=== PATIENT | female | born 1980 | race Caucasian/White ===

== ENCOUNTER 2016-07-02 07:33 | Emergency (ER) | payer SELFPAY ==
--- NOTE | 2016-07-02 09:24 | ER Document Report ---
ED General - General Chief Complaint: Facial Swelling Stated Complaint: FACIAL PAIN Mode of Arrival: Ambulatory Information source: Patient TRAVEL OUTSIDE OF THE [place] IN LAST 30 DAYS: No - HPI Onset: Just prior to arrival Onset/Duration: Gradual Notes: A 5-year-old female presented to the emergency room today stating that she woke to the left side of her lower jaw swelling with discomfort. She does have some severe dentalgia in the area. - Related Data Allergies/Adverse Reactions: Bee Stings Allergy (Uncoded 07/02/16 07:41) Past Medical History - Social History Smoking Status: Current Every Day Smoker Cigarette use (# per day): No Chew tobacco use (# tins/day): No Frequency of alcohol use: Occasional Family History: Other Patient has suicidal ideation: No Patient has homicidal ideation: No - Past Medical History Cardiac Medical History: Denies: Hx Coronary Artery Disease, Hx Heart Attack, Hx Hypertension Pulmonary Medical History: Reports: Hx Bronchitis Denies: Hx Asthma, Hx COPD Neurological Medical History: Denies: Hx Cerebrovascular Accident, Hx Seizures Renal/ Medical History: Denies: Hx Peritoneal Dialysis Musculoskeltal Medical History: Denies Hx Arthritis Past Surgical History: Reports: Hx Thyroid Surgery, Hx Tubal Ligation - 6 months ago. Denies: Hx Pacemaker - Immunizations Hx Diphtheria, Pertussis, Tetanus Vaccination: Yes Hx Pneumococcal Vaccination: 02/08/00 Review of Systems - Review of Systems Constitutional: No symptoms reported EENT: No symptoms reported Cardiovascular: No symptoms reported Respiratory: No symptoms reported Gastrointestinal: No symptoms reported Genitourinary: No symptoms reported Female Genitourinary: No symptoms reported Musculoskeletal: No symptoms reported Skin: No symptoms reported Hematologic/Lymphatic: No symptoms reported Neurological/Psychological: No symptoms reported Physical Exam - Vital signs Vitals: Temp Pulse Resp BP Pulse Ox 97.6 F 66 16 122/85 98 07/02/16 07:41 07/02/16 07:41 07/02/16 07:41 07/02/16 07:41 07/02/16 07:41 Interpretation: Normal - General General appearance: Appears well, Alert - HEENT Head: Normocephalic, Atraumatic Eyes: Normal Pupils: PERRL Mouth/Lips: Dental fracture, Other - Dental abscess to tooth 18 and 19.. Severe dentalgia to tooth 17 through 21. - Respiratory Respiratory status: No respiratory distress Chest status: Nontender Breath sounds: Normal Chest palpation: Normal - Cardiovascular Rhythm: Regular Heart sounds: Normal auscultation Murmur: No - Abdominal Inspection: Normal Distension: No distension Bowel sounds: Normal Tenderness: Nontender Organomegaly: No organomegaly - Back Back: Normal, Nontender - Extremities General upper extremity: Normal inspection, Nontender, Normal color, Normal ROM , Normal temperature General lower extremity: Normal inspection, Nontender, Normal color, Normal ROM , Normal temperature, Normal weight bearing. No: Bernie's sign - Neurological Neuro grossly intact: Yes Cognition: Normal Orientation: AAOx4 Kevin Coma Scale Eye Opening: Spontaneous [place] Coma Scale Verbal: Oriented [place] Coma Scale Motor: Obeys Commands Kevin Coma Scale Total: 15 Speech: Normal Motor strength normal: LUE, RUE, LLE, RLE Sensory: Normal - Psychological Associated symptoms: Normal affect, Normal mood - Skin Skin Temperature: Warm Skin Moisture: Dry Skin Color: Normal Course - Vital Signs Vital signs: Temp Pulse Resp BP Pulse Ox 97.6 F 66 16 122/85 98 07/02/16 07:41 07/02/16 07:41 07/02/16 07:41 07/02/16 07:41 07/02/16 07:41 Discharge - Discharge Clinical Impression: Dental abscess Disposition: HOME, SELF-CARE Instructions: Oral Narcotic Medication ([facility]), Dental Infection or Abscess ([facility]) Additional Instructions: Toothache Your pain is due to dental decay. The tooth must be repaired in order for you to feel better. You will, therefore, be referred to a dentist. Severe swelling or drainage around a tooth usually means a deep dental abscess. This also requires evaluation and treatment by the dentist, but antibiotics may be prescribed while awaiting dental treatment. You should be rechecked immediately if you develop major swelling of the face, increasing pain, a lump in the jaw or gums, headache, or fever. Prescriptions: Tramadol HCl [Ultram 50 mg Tablet] 50 mg PO Q4HP PRN #60 tab PRN Reason: Clindamycin HCl [Cleocin HCl] 150 mg PO TID #30 capsule Naproxen Sodium [Naproxen Sodium ER] 500 mg PO Q12 PRN #20 tablet.sa PRN Reason:
[2016-07-02 09:35] VITALS: BP 116/91
== END 2016-07-02 09:38 | disposition home or self-care (01) ==
LOC: ER 07:33
DX: K04.7 Periapical abscess without sinus (principal); R22.0 Localized swelling, mass and lump, head; R51 Headache; R68.84 Jaw pain; F17.200 Nicotine dependence, unspecified, uncomplicated
CPT/HCPCS: 99283

== ENCOUNTER 2016-11-15 19:28 | Emergency (ER) | payer SELFPAY ==
[2016-11-15 19:36] VITALS: BP 127/79
== END 2016-11-15 22:00 | disposition left against medical advice (07) ==
LOC: ER 19:28
DX: Z53.21 Procedure and treatment not carried out due to patient leaving prior to being seen by health care provider (principal)

== ENCOUNTER 2017-09-20 16:47 | Emergency (ER) | payer SELFPAY ==
[2017-09-20 18:09] LABS: APPEARANCE,URINE SLIGHTLY-CLOUDY; BILIRUBIN,URINE NEGATIVE (NEGATIVE); COLOR,URINE YELLOW; GLUCOSE, URINE NEGATIVE (NEGATIVE); KETONES,URINE NEGATIVE (NEGATIVE); LEUKOCYTE ESTERASE,URINE MODERATE (NEGATIVE); NITRITE,URINE NEGATIVE (NEGATIVE); PROTEIN,URINE NEGATIVE (NEGATIVE); URINE SPECIFIC GRAVITY 1.011; UROBILINOGEN,URINE NEGATIVE mg/dL (<2.0)
[2017-09-20] MEDS ORDERED: ASPIRIN 81 MG TABLET, CHEWABLE PO ONE (19:10)
--- NOTE | 2017-09-20 19:10 | ER Document Report ---
ED Medical Screen (RME) - General Chief Complaint: Chest Pain Stated Complaint: ABDOMINAL/SHOULDER PAIN Time Seen by Provider: 09/20/17 19:06 TRAVEL OUTSIDE OF THE [place] IN LAST 30 DAYS: No - HPI Notes: 09/20/17 19:09 Left upper quadrant abdominal pain with slight nausea denies any fevers or chills ongoing for a week. Patient states total thyroidectomy also took all her parathyroid medications for 1 year. - Related Data Allergies/Adverse Reactions: Bee Stings Allergy (Uncoded 07/02/16 07:41) Past Medical History - Social History Chew tobacco use (# tins/day): No Frequency of alcohol use: None Drug Abuse: None - Past Medical History Cardiac Medical History: Denies: Hx Coronary Artery Disease, Hx Heart Attack, Hx Hypertension Pulmonary Medical History: Reports: Hx Bronchitis Denies: Hx Asthma, Hx COPD Neurological Medical History: Denies: Hx Cerebrovascular Accident, Hx Seizures Renal/ Medical History: Denies: Hx Peritoneal Dialysis Musculoskeltal Medical History: Denies Hx Arthritis Past Surgical History: Reports: Hx Thyroid Surgery, Hx Tubal Ligation. Denies: Hx Pacemaker - Immunizations Hx Diphtheria, Pertussis, Tetanus Vaccination: Yes Review of Systems - Review of Systems Cardiovascular: Other - Left upper quadrant abdominal pain Physical Exam - Vital signs Vitals: Temp Pulse Resp BP Pulse Ox 98.1 F 63 16 131/86 H 99 09/20/17 17:21 09/20/17 17:21 09/20/17 17:21 09/20/17 17:21 09/20/17 17:21 - Cardiovascular Rhythm: Regular Heart sounds: Normal auscultation Course - Vital Signs Vital signs: Temp Pulse Resp BP Pulse Ox 98.1 F 63 16 131/86 H 99 09/20/17 17:21 09/20/17 17:21 09/20/17 17:21 09/20/17 17:21 09/20/17 17:21 - Laboratory Laboratory results interpreted by me: 09/20/17 17:35 Ur Leukocyte Esterase MODERATE H
[2017-09-20 20:05] LABS: ABSOLUTE EOSINOPHILS # (AUTO) 0.2 10^3/uL (0.0-0.6); ABSOLUTE LYMPHOCYTES (AUTO) 2.3 10^3/uL (0.5-4.7); ABSOLUTE MONOCYTES (AUTO) 0.4 10^3/uL (0.1-1.4); ABSOLUTE NEUT (AUTO) 3.9 10^3/uL (1.7-8.2); BASOPHILS % (AUTO) 0.6 % (0-2); EOSINOPHILS % (AUTO) 3.3 % (0-6); HEMATOCRIT 37.6 % (36.0-47.0); HEMOGLOBIN 12.4 g/dL (12.0-15.5); LYMPHOCYTES % (AUTO) 33.4 % (13-45); MEAN CORPUSCULAR HEMOGLOBIN 28.2 pg (27.0-33.4); MEAN CORPUSCULAR HGB CONC 33.1 g/dL (32.0-36.0); MEAN CORPUSCULAR VOLUME 85 fl (80-97); MONOCYTES % (AUTO) 6.2 % (3-13); PLATELET COUNT 250 10^3/uL (150-450); RED BLOOD COUNT 4.42 10^6/uL (3.72-5.28); RED CELL DISTRIBUTION WIDTH 15.9 % (11.5-14.0); SEGMENTED NEUTROPHILS % (AUTO) 56.5 % (42-78); TOTAL CELLS COUNTED % (AUTO) 100 %; WHITE BLOOD COUNT 6.8 10^3/uL (4.0-10.5)
[2017-09-20] MEDS ORDERED: MORPHINE SULFATE 10 MG/ML INJ IV ONE (20:13)
[2017-09-20] MEDS ORDERED: ONDANSETRON HCL INJ/PF 4 MG/2 ML SDV IV ONE (20:13)
--- NOTE | 2017-09-20 20:22 | RADIOLOGY REPORT (SQ) ---
EXAM DESCRIPTION: ACUTE ABDOMEN SERIES COMPLETED DATE/TIME: 09/20/2017 7:59 pm REASON FOR STUDY: llq pain COMPARISON: None. NUMBER OF VIEWS: Three views. TECHNIQUE: Frontal chest, supine abdomen and upright/ abdomen radiographic images acquired. LIMITATIONS: None. FINDINGS: CHEST: Lungs clear of infiltrates. FREE AIR: None. No abnormal gas collections. BOWEL GAS PATTERN: Nonobstructive pattern. No dilated loops or air fluid levels. CALCIFICATIONS: No suspicious calcifications. HARDWARE: None in the abdomen. SOFT TISSUES: The liver is prominent. BONES: No acute fracture. No worrisome bone lesions. OTHER: No other significant finding. IMPRESSION: Possible hepatomegaly. Nonspecific abdomen otherwise. TECHNICAL DOCUMENTATION: JOB ID: [id number] [employer]- All Rights Reserved Reading location - IP/workstation name: [email or web address]
[2017-09-20 20:24] LABS: ALANINE AMINOTRANSFERASE 27 U/L (9-52); ALBUMIN 4.7 g/dL (3.5-5.0); ALKALINE PHOSPHATASE 46 U/L (38-126); ANION GAP 11 (5-19); ASPARTATE AMINO TRANSFERASE 20 U/L (14-36); BILIRUBIN,DIRECT 0.2 mg/dL (0.0-0.4); BILIRUBIN,TOTAL 0.3 mg/dL (0.2-1.3); BLOOD UREA NITROGEN 9 mg/dL (7-20); CALCIUM 9.5 mg/dL (8.4-10.2); CARBON DIOXIDE 26 mmol/L (22-30); CHLORIDE 105 mmol/L (98-107); CREATINE KINASE 57 U/L (30-135); GLUCOSE 74 mg/dL (75-110); POTASSIUM 3.8 mmol/L (3.6-5.0); SODIUM 142.4 mmol/L (137-145); TOTAL PROTEIN 7.9 g/dL (6.3-8.2)
[2017-09-20 20:36] LABS: CREATINE KINASE MB 0.23 ng/mL (<4.55)
[2017-09-20 20:39] LABS: TROPONIN I < 0.012 ng/mL
[2017-09-20 20:41] LABS: FREE T4 (FREE THYROXINE) 0.77 ng/dL (0.78-2.19)
[2017-09-20 20:55] LABS: THYROID STIMULATING HORMONE 5.01 uIU/mL (0.47-4.68)
[2017-09-20 21:13] LABS: LIPASE 93.8 U/L (23-300)
--- NOTE | 2017-09-20 21:25 | ER Document Report ---
ED General - General Chief Complaint: Abdominal Pain Stated Complaint: ABDOMINAL/SHOULDER PAIN Time Seen by Provider: 09/20/17 19:06 TRAVEL OUTSIDE OF THE [place] IN LAST 30 DAYS: No - HPI Notes: 36-year-old female presents with 1-1/2 weeks of left upper quadrant abdominal pain radiating into her chest and back. Pain is sharp and constant. Denies nausea, vomiting. She has had multiple episodes of diarrhea without any obvious blood. No fevers or chills. Denies shortness of breath, cough, hemoptysis. No recent travel. No similar pain in the past. No history of clots or hormone use. Denies urinary changes, vaginal bleeding or vaginal discharge. Denies rash or skin hyperesthesia. - Related Data Allergies/Adverse Reactions: Bee Stings Allergy (Uncoded 07/02/16 07:41) Past Medical History - Social History Smoking Status: Current Every Day Smoker Chew tobacco use (# tins/day): No Frequency of alcohol use: None Drug Abuse: None Family History: Other Patient has suicidal ideation: No Patient has homicidal ideation: No - Past Medical History Cardiac Medical History: Denies: Hx Coronary Artery Disease, Hx Heart Attack, Hx Hypertension Pulmonary Medical History: Reports: Hx Bronchitis Denies: Hx Asthma, Hx COPD Neurological Medical History: Denies: Hx Cerebrovascular Accident, Hx Seizures Renal/ Medical History: Denies: Hx Peritoneal Dialysis Musculoskeletal Medical History: Denies Hx Arthritis Past Surgical History: Reports: Hx Thyroid Surgery, Hx Tubal Ligation. Denies: Hx Pacemaker - Immunizations Hx Diphtheria, Pertussis, Tetanus Vaccination: Yes Hx Pneumococcal Vaccination: 02/08/00 Review of Systems - Review of Systems Notes: Constitutional: Negative for fever. HENT: Negative for sore throat. Eyes: Negative for visual changes. Cardiovascular: Positive for left chest pain Respiratory: Negative for shortness of breath. Gastrointestinal: Positive for abdominal pain and diarrhea. Negative for nausea or vomiting. Genitourinary: Negative for dysuria. No vaginal discharge or bleeding. Musculoskeletal: Positive for left-sided back pain Skin: Negative for rash. Neurological: Negative for headaches, weakness or numbness. 10 point ROS negative except as marked above and in HPI. Physical Exam - Vital signs Vitals: Temp Pulse Resp BP Pulse Ox 98.1 F 63 16 131/86 H 99 09/20/17 17:21 09/20/17 17:21 08/14/18 17:21 09/20/17 17:21 09/20/17 17:21 - Notes Notes: PHYSICAL EXAMINATION: GENERAL: Well-appearing, well-nourished and in no acute distress. HEAD: Atraumatic, normocephalic. EYES: Pupils equal round and reactive to light, extraocular movements intact, conjunctiva are normal. ENT: nares patent, oropharynx clear without exudates. Moist mucous membranes. NECK: Normal range of motion, supple without lymphadenopathy LUNGS: Breath sounds clear to auscultation bilaterally and equal. No wheezes rales or rhonchi. HEART: Regular rate and rhythm, left lower chest wall tenderness and posterior thoracic tenderness. ABDOMEN: Soft, normoactive bowel sounds. No guarding, no rebound. No masses appreciated. Left upper quadrant tenderness. Left CVA tenderness. EXTREMITIES: Normal range of motion, no pitting or edema. No cyanosis. NEUROLOGICAL: Cranial nerves grossly intact. Normal speech, normal gait. Normal sensory and motor exams. PSYCH: Normal mood, normal affect. SKIN: Warm, Dry, normal turgor, no rashes or lesions noted. Course - Re-evaluation Re-evalutation: 09/20/17 21:24 No shingles rash. Patient has mostly upper abdominal tenderness extending in her chest wall. No risk factors for pulmonary embolism. Abdominal series unremarkable with clear lower chest. 09/20/17 23:[address] shows 6.2 x 4.2 x 5.5 cm septated cyst in her spleen. Discussed findings with surgery on-call, Dr. Goodman. He agreed to follow-up patient in the office within the next 48 hours. Discussed patient that she may not play any contact sports or anything at risk for trauma due to increased risk of splenic rupture. She expressed understanding. At this time will discharge with return precautions and follow-up recommendations. Verbal discharge instructions given a the bedside and opportunity for questions given. Medication warnings reviewed. Patient is in agreement with this plan and has verbalized understanding of return precautions and the need for primary care follow-up in the next 24-72 hours. - Vital Signs Vital signs: Temp Pulse Resp BP Pulse Ox 98.1 F 63 17 120/69 100 09/20/17 17:21 09/20/17 17:21 09/20/17 22:00 09/20/17 22:00 09/20/17 22:00 - Laboratory Result Diagrams: 09/20/17 19:52 09/20/17 19:52 Laboratory results interpreted by me: 09/20/17 09/20/17 09/20/17 17:35 19:52 19:52 RDW 15.9 H Glucose 74 L TSH Free T4 Ur Leukocyte Esterase MODERATE H 09/20/17 19:52 RDW Glucose TSH 5.01 H Free T4 0.77 L Ur Leukocyte Esterase Discharge - Discharge Clinical Impression: Splenic cyst Condition: Stable Disposition: HOME, SELF-CARE Additional Instructions: You have a 6.2 x 4.2 x 5.5 cm cyst in your spleen. This is at risk for rupture with trauma. No contact sports or any roughhousing. You must return for any severe pain, passing out, vomiting, fever, or other concerns. Call the surgeon tomorrow morning to be seen within the next 48 hours. Return for any other worsening or concerning symptoms. Prescriptions: Tramadol HCl [Ultram] 50 mg PO Q6 PRN #12 tablet PRN Reason: Severe Pain Referrals: BE GOODMAN MD [MARYANNE JOYCE] - Follow up tomorrow
--- NOTE | 2017-09-20 23:26 | RADIOLOGY REPORT (SQ) ---
PROCEDURE: CT OF THE ABDOMEN AND PELVIS WITH INTRAVENOUS CONTRAST HISTORY: luq pain Indication: Same as above Comparison: None . Technique: The study was done on 09/20/2017 at 11:[address] of the abdomen and pelvis was done with intravenous contrast. Images were obtained from the lung base to the level of the pubic symphysis in axial plane, followed by orthogonal sagittal and coronal reconstruction. Oral contrast was also given for the study. The patient was injected with radiographic contrast intravenously, without any documented immediate adverse reactions. This exam was performed according to our departmental dose-optimization program, which includes automated exposure control, adjustment of the mA and/or KV according to the patient's size and/or use of iterative reconstruction technique. FINDINGS: In the normal-sized spleen, along the medial aspect, there is a 6.2 x 4.2 x 5.5 cm cystic lesion containing septation within and interrupted peripheral and septal wall calcifications and most likely representing a splenic hemangioma or a splenic cyst. There is no perisplenic or subcapsular splenic fluid collection Images through the lung bases do not show any focal infiltrates or pleural effusions. The liver, gallbladder, pancreas and the bilateral adrenal glands appear unremarkable. The bilateral kidneys enhance with contrast in a normal fashion. The urinary bladder is unremarkable . The bilateral ureters and the bilateral periureteral soft tissues and fat planes are unremarkable. The small bowel appears unremarkable, without any evidence of small bowel obstruction or bowel wall thickening. There is no CT evidence of acute appendicitis, pericecal inflammatory change or ileocecal mesenteric adenitis. The ileocecal junction appears unremarkable. There is no CT evidence of acute colonic diverticulitis or colitis or large bowel obstruction. The splenic and portal veins are of normal caliber, without any filling defects. There is no pathological lymphadenopathy in the retroperitoneum or in the pelvic region. There is no evidence of free fluid or free air in the abdomen or the pelvic region. There is no clinically significant abdominal aortic aneurysm. There is no clinically significant inguinal or ventral hernia. An anteverted uterus is seen. There is presence of a dominant follicular cyst in the right ovary, not requiring any imaging follow-up. The visualized lumbar spine is unremarkable . The paravertebral soft tissues are unremarkable. The remainder of the pelvic structures are unremarkable. IMPRESSION: In the normal-sized spleen, along the medial aspect, there is a 6.2 x 4.2 x 5.5 cm cystic lesion containing septation within and interrupted peripheral and septal wall calcifications and most likely representing a splenic hemangioma or a splenic cyst. There is no perisplenic or subcapsular splenic fluid collection
[2017-09-20 23:59] VITALS: BP 114/71
--- NOTE | 2017-09-21 07:09 | EKG REPORT ---
SEVERITY:- ABNORMAL ECG - SINUS RHYTHM NONSPECIFIC ST-T CHANGES ANTERIOR LEADS : Confirmed by: Eh Robledo MD 21-Sep-2017 07:07:58
== END 2017-09-20 23:25 | disposition home or self-care (01) ==
LOC: ER 16:47
DX: D73.4 Cyst of spleen (principal); R10.12 Left upper quadrant pain; R19.7 Diarrhea, unspecified; R07.9 Chest pain, unspecified; M54.9 Dorsalgia, unspecified; F17.200 Nicotine dependence, unspecified, uncomplicated; Z91.030 Bee allergy status
CPT/HCPCS: 93005; 99284; 96374; 96375; 36415; 84439; 82553; 82550; 83690; 84443; 85025; 81025; 80053; 81001; 84484; 74022; 74177; 93010; J2270; J2405

== ENCOUNTER 2017-09-30 05:27 | Inpatient (IN) | payer SELFPAY ==
[2017-09-28 12:57] LABS: HEMATOCRIT 37.9 % (36.0-47.0); HEMOGLOBIN 12.5 g/dL (12.0-15.5); MEAN CORPUSCULAR HEMOGLOBIN 27.9 pg (27.0-33.4); MEAN CORPUSCULAR VOLUME 85 fl (80-97); PLATELET COUNT 286 10^3/uL (150-450); RED BLOOD COUNT 4.48 10^6/uL (3.72-5.28); WHITE BLOOD COUNT 5.7 10^3/uL (4.0-10.5)
[2017-09-28 13:20] LABS: ANION GAP 11 (5-19); BLOOD UREA NITROGEN 6 mg/dL (7-20); CALCIUM 9.4 mg/dL (8.4-10.2); CARBON DIOXIDE 26 mmol/L (22-30); CHLORIDE 105 mmol/L (98-107); GLUCOSE 91 mg/dL (75-110); POTASSIUM 4.5 mmol/L (3.6-5.0); SODIUM 142.4 mmol/L (137-145)
[~2017-09-30 05:27] MED LIST: CEFAZOLIN 2 GM/D5W RTU 2 GM/50 ML RTUPB IV PRN; DESMOPRESSIN ACETATE 17 MCG in NORMAL SALINE 50 ML IV PRN; RINGERS SOLUTION,LACTATED 1,000 ML IV PRN
[2017-09-30] MEDS ORDERED: LIDOCAINE 2% INJ-PF (20 MG/ML) 10 ML AMPUL ONE (06:26)
[2017-09-30] MEDS ORDERED: MIDAZOLAM 2 MG/2 ML INJ ONE (06:28)
[2017-09-30] MEDS ORDERED: FENTANYL CITRATE INJ/PF 100 MCG/2 ML AMPUL ONE ×2 (06:28→09:39)
[2017-09-30] MEDS ORDERED: DEXAMETHASONE SOD PHOSPHATE INJ 4 MG/1 ML VIAL ONE ×2 (06:29→08:51)
[2017-09-30] MEDS ORDERED: PROPOFOL INJ 200 MG/20 ML VIAL IV ONE (06:29)
[2017-09-30] MEDS ORDERED: ACETAMINOPHEN 1,000 MG/100 ML RTUPB IV ONE (06:29)
[2017-09-30] MEDS ORDERED: ONDANSETRON HCL INJ/PF 4 MG/2 ML SDV ONE (06:29)
[2017-09-30] MEDS ORDERED: BUPIVACAINE HCL 0.25 % INJ/PF (2.5 MG/1 ML) 30 ML VIAL ONE (06:39)
[2017-09-30] MEDS ORDERED: SCOPOLAMINE HYDROBROMIDE 1.5 MG PATCH.TD72 ONE (07:11)
[2017-09-30] MEDS ORDERED: ALBUTEROL SULFATE 0.083% NEB 2.5 MG/3 ML AMPUL NEB ONE (07:13)
[2017-09-30] MEDS ORDERED: DIPHENHYDRAMINE HCL 50 MG/ML VIAL IV PRN (09:01)
[2017-09-30] MEDS ORDERED: FENTANYL CITRATE INJ/PF 100 MCG/2 ML AMPUL IV PRN ×2 (09:01)
[2017-09-30] MEDS ORDERED: MEPERIDINE HCL/PF INJ 25 MG/1 ML DISP.SYRIN IV PRN (09:01)
[2017-09-30] MEDS ORDERED: ONDANSETRON HCL INJ/PF 4 MG/2 ML SDV IV PRN ×2 (09:01→13:24)
[2017-09-30] MEDS ORDERED: MORPHINE SULFATE 10 MG/ML INJ IV PRN (09:01)
[2017-09-30] MEDS ORDERED: PROMETHAZINE HCL INJ 25 MG/1 ML VIAL IV PRN ×2 (09:01)
[2017-09-30] MEDS: FENTANYL CITRATE INJ/PF 100 MCG/2 ML AMPUL IV PRN ×2 (09:40→09:45)
--- NOTE | 2017-09-30 09:56 | Operative Report ---
Nonrecallable Operative Report DATE OF SURGERY: 09/30/17 PREOPERATIVE DIAGNOSIS: Symptomatic splenic mass POSTOPERATIVE DIAGNOSIS: Same as above OPERATION: Laparoscopic splenectomy SURGEON: SHERICE ARANA ANESTHESIA: GA TISSUE REMOVED OR ALTERED: Spleen COMPLICATIONS: None apparent ESTIMATED BLOOD LOSS: Minimal PROCEDURE: Drains/implants: None. Procedure in detail: After informed consent was obtained, the patient was laid in the supine position with a bump beneath the left shoulder. The area of the abdomen was prepped and draped in a normal sterile fashion. An incision was created superior and lateral to the umbilicus in the left abdomen. Dissection was carried down to the fascia using blunt means. The anterior sheath was incised sharply, and the abdomen was entered sharply. The balloon trocar was inserted, and pneumoperitoneum was achieved. A 5 mm trocar was placed in the left lateral abdomen as well as in the subxiphoid position. A 12 mm trocar was placed in the supraumbilical midline. All this was done under direct laparoscopic visualization. The spleen and stomach were brought into view. Short gastric vessels were taken down using the harmonic scalpel, immediately adjacent to the spleen. Next the splenic flexure of the colon was mobilized and reflected inferiorly. This was done in order to visualize and expose the splenic vessels. The splenic vessels were ligated in the hilum using the [place] 60 stapling device with vascular loads. Once the splenic vessels were ligated the spleen was freed from the surrounding tissue using blunt dissection and the harmonic scalpel. The posterior splenic mass was not disrupted or entered during the dissection. The spleen, after being freed from the surrounding tissue, was placed into a large Endo Catch bag. The splenic bed was then carefully inspected. There was no bleeding coming from the splenic vessels or from the surrounding tissues. Once this was confirmed, attention was turned to removal of the spleen from the abdominal cavity. A midline incision was then created starting at the supraumbilical 12 mm trocar site. The midline fascia was incised approximately 8 cm. The incision was just large enough in order to remove the spleen without morcellation. Once the spleen was removed, the fascia was closed using #1 single strand PDS suture in simple running fashion. The left abdominal wall 12 mm trocar site fascia was closed using 0 Vicryl suture in [id number] fashion. The overlying skin was closed using 4-0 Vicryl Rapide suture in subcuticular fashion. All sponge, instrument, and needle counts were correct 2. Condition: Stable.
[2017-09-30] MEDS: HYDROMORPHONE HCL INJ/PF 2 MG/ML AMPULE ONE ×2 (10:09→10:30)
[2017-09-30] MEDS ORDERED: NEOSTIGMINE METHYLSULFATE 10 MG/10 ML VIAL ONE (10:12)
[2017-09-30] MEDS ORDERED: VECURONIUM BROMIDE INJ 10 MG VIAL IV ONE (10:12)
[2017-09-30] MEDS ORDERED: GLYCOPYRROLATE 1 MG/5 ML SYRINGE ONE (10:12)
[2017-09-30] MEDS ORDERED: SUCCINYLCHOLINE CHLORIDE INJ 200 MG/10 ML VIAL ONE (10:12)
[2017-09-30] MEDS ORDERED: LORAZEPAM INJ 2 MG/1 ML VIAL ONE ×11 (11:40)
[2017-09-30] MEDS: OXYCODONE-ACETAMINOPHEN 5-325 MG TABLET PO PRN ×2 (14:47→20:18)
[2017-09-30] MEDS: DOCUSATE SODIUM 100 MG CAPSULE PO SCH ×2 (15:23→17:44)
[2017-09-30] MEDS ORDERED: HAEMPH B POLYSAC CONJ-MENIN/PF 0.5 ML VIAL IM ONE (15:30)
[2017-09-30] MEDS ORDERED: PNEUMOCOCCAL 23-VAL P-SAC VAC 0.5 ML VIAL IM PRN (15:30)
[2017-09-30] MEDS ORDERED: MENINGOCOCCAL VAC A,C,Y,W-135 DIP/PF 0.5 ML VIAL IM ONE (15:30)
[2017-09-30] MEDS: DEXTROSE 5%-LACTATED RINGERS 1,000 ML IV PRN (17:46)
[2017-09-30] MEDS: MORPHINE SULFATE 10 MG/ML INJ IV PRN ×2 (17:51→22:26)
[2017-10-01] MEDS: OXYCODONE-ACETAMINOPHEN 5-325 MG TABLET PO PRN ×3 (00:15→11:03)
[2017-10-01] MEDS: DEXTROSE 5%-LACTATED RINGERS 1,000 ML IV PRN (02:56)
[2017-10-01] MEDS: MORPHINE SULFATE 10 MG/ML INJ IV PRN ×2 (02:57→09:23)
[2017-10-01 06:20] LABS: ABSOLUTE LYMPHOCYTES (AUTO) 1.7 10^3/uL (0.5-4.7); ABSOLUTE MONOCYTES (AUTO) 1.3 10^3/uL (0.1-1.4); ABSOLUTE NEUT (AUTO) 15.1 10^3/uL (1.7-8.2); BASOPHILS % (AUTO) 0.2 % (0-2); HEMATOCRIT 29.4 % (36.0-47.0); LYMPHOCYTES % (AUTO) 9.2 % (13-45); MEAN CORPUSCULAR HEMOGLOBIN 28.7 pg (27.0-33.4); MEAN CORPUSCULAR VOLUME 84 fl (80-97); PLATELET COUNT 229 10^3/uL (150-450); RED BLOOD COUNT 3.49 10^6/uL (3.72-5.28); RED CELL DISTRIBUTION WIDTH 15.9 % (11.5-14.0); SEGMENTED NEUTROPHILS % (AUTO) 83.6 % (42-78); TOTAL CELLS COUNTED % (AUTO) 100 %
[2017-10-01 06:23] LABS: WHITE BLOOD COUNT 18.1 10^3/uL (4.0-10.5)
[2017-10-01] MEDS: DOCUSATE SODIUM 100 MG CAPSULE PO SCH (09:22)
--- NOTE | 2017-10-01 11:54 | PDOC DISCHARGE SUMMARY ---
General - Admit/Disc Date/PCP Admission Date/Primary Care Provider: 09/30/17 05:27 Discharge Date: 10/01/17 - Discharge Diagnosis (1) Splenic mass Is this a current diagnosis for this admission?: Yes - Additional Information Home Medications: No Home Medications 09/30/17 History of Present Illness History of Present Illness: ROSELYN CONNOR is a 36 year old female made with a symptomatic splenic mass. She underwent laparoscopic splenectomy and was taken to the floor in stable condition. Hospital Course Hospital Course: Patient remained on the floor in stable condition. The patient began tolerating a diet, ambulating, and taking oral pain medications. By 10/01/2017 the patient was stable, and her pain was controlled with oral pain meds. At this time it was felt that she had reached maximal hospital benefit, and was fit for discharge. Physical Exam Vital Signs: Temp Pulse Resp BP Pulse Ox 98.4 F 57 L 15 116/68 100 10/01/17 08:07 10/01/17 08:07 10/01/17 08:07 10/01/17 08:07 10/01/17 08:07 Intake & Output 09/30/17 10/01/17 10/02/17 06:59 06:59 06:59 Intake Total 0 2717 Output Total 104 Balance 0 2613 Weight 56.7 kg Results Laboratory Results: 10/01/17 04:23 09/28/17 11:40 10/01/17 04:23 WBC 18.1 H D RBC 3.49 L Hgb 10.0 L D Hct 29.4 L MCV 84 MCH 28.7 MCHC 34.0 RDW 15.9 H Plt Count 229 Seg Neutrophils % 83.6 H Lymphocytes % 9.2 L Monocytes % 7.0 Eosinophils % 0.0 Basophils % 0.2 Absolute Neutrophils 15.1 H Absolute Lymphocytes 1.7 Absolute Monocytes 1.3 Absolute Eosinophils 0.0 Absolute Basophils 0.0 Qualifiers - * PATIENT BEING DISCHARGED WITH ANY OF THE FOLLOWING DIAGNOSIS: No Plan Discharge Plan: Discharge home. Diet as tolerated. Activity: No lifting greater than 10 pounds 6 weeks. Okay to shower starting 10/02/2017. No tub baths or swimming 2 weeks. Follow-up with me in 7-10 days. Percocet 10/325 mg p.o. every 6 hours as needed pain. Time Spent: Less than 30 Minutes
[2017-10-01 12:29] VITALS: BP 123/66
== END 2017-10-01 12:43 | disposition home or self-care (01) | DRG 801 ==
LOC: INOR 05:27 → OBSVTOIN 05:27 → INTOOBSV 05:27 → EDSTATUS 07:30 → 5 13:52
PROVIDERS: ADMIT Surgery; ATTEND Surgery
PROC: 07TP4ZZ Resection of Spleen, Percutaneous Endoscopic Approach (ICD-10-PCS; principal; 2017-09-30 07:30)
DX: R16.1 Splenomegaly, not elsewhere classified (principal); F17.210 Nicotine dependence, cigarettes, uncomplicated; E89.0 Postprocedural hypothyroidism; Z82.49 Family history of ischemic heart disease and other diseases of the circulatory system; R11.2 Nausea with vomiting, unspecified; R19.7 Diarrhea, unspecified; Z91.030 Bee allergy status
CPT/HCPCS: 36415; 790; 80048; 81025; 85025; 85027; 86850; 86900; 86901; 86920; 88307; 88312; 88341; 88342; 90471; 90647; 90732; 90734; 94799; G0009; G0378; G0379; J0131; J0330; J0690; J1100; J1170; J2060; J2250; J2270; J2405; J2597; J2704; J3010; J3490

== ENCOUNTER → 2019-08-15 | Outpatient (CLI) | payer SELFPAY ==
--- NOTE | 2019-08-15 15:09 | ER RDC ASSESSMENT REPORT ---
Intake - In the Last 14 days Have you traveled outside [place]?: No Have you been in close contact with someone CONFIRMED: Yes Worked in Healthcare?: No - Symptoms Subjective Fever([place] feverish): No Chills: No Muscule Aches: No Runny Nose: No Sore Throat: No Cough (New or worsening chronic cough): No Shortness of breath: No Nausea or Vomiting: No Headache: No Abdominal Pain: No Diarrhea(3 or more loose stools in last 24 hours): No - Do you have any of the following Chronic lung disease: Asthma or emphysema or COPD: No Cystic Fibrosis: No Diabetes: No High Blood Pressure: No Cardiovascular Disease: No Chronic Kidney Disease: No Chronic Liver Disease: No Chronic blood disorder like Sickle Cell Disease: No Weak immune system due to disease or medication: No Neurologic condition that limits movement: No Developmental delay - Moderate to Severe: No Recent (within past 2 weeks) or current : No Morbid Obesity (>100 pounds over ideal weight): No - Objective Vital Signs: 5'4" 140 lb Temperature: 97.6 F Pulse Rate: 77 Respiratory Rate: 20 Blood Pressure: 120/61 O2 Sat by Pulse Oximetry: 95 Objective: Given above, testing performed: covid Disposition: Home; Selfcare General - General Chief Complaint: Other Time Seen by Provider: 08/15/19 14:50 Mode of Arrival: Ambulatory Information source: Patient - HPI Notes: Patient presents to clinic for COVID-19 testing. Prior medical history signi ficant for Graves' disease. Patient is reporting exposure to COVID positive individual and would like to be tested. Patient is asymptomatic. They deny any cough, shortness of breath, fever, chills, muscle aches, rhinorrhea, sore throat, nausea or vomiting, headache, abdominal pain or diarrhea. Patient has no acute medical concerns - Related Data Allergies/Adverse Reactions: Bee Stings Allergy (Uncoded 09/30/17 06:18) Past Medical History - General Information source: Patient - Social History Smoking Status: Current Every Day Smoker Smoking Education Provided: Yes Family History: Other - Past Medical History Cardiac Medical History: Reports: None Denies: Hx Coronary Artery Disease, Hx Heart Attack, Hx Hypertension Pulmonary Medical History: Reports: Hx Pneumonia - CHILD Denies: Hx Asthma, Hx Bronchitis, Hx COPD EENT Medical History: Reports: None Neurological Medical History: Reports: None. Denies: Hx Cerebrovascular Accident, Hx Seizures Endocrine Medical History: Reports: Hx Graves' Disease Renal/ Medical History: Reports: None. Denies: Hx Peritoneal Dialysis Malignancy Medical History: Reports: None GI Medical History: Reports: None Musculoskeletal Medical History: Reports None, Denies Hx Arthritis Skin Medical History: Reports None Psychiatric Medical History: Reports: None Traumatic Medical History: Reports: None Infectious Medical History: Reports: None Past Surgical History: Reports: Hx Thyroid Surgery, Hx Tubal Ligation. Denies: Hx Pacemaker Physical Exam - General General appearance: Appears well, Alert In distress: None Notes: PHYSICAL EXAMINATION: GENERAL: Well-appearing and in no acute distress. HEAD: Atraumatic, normocephalic. EYES: sclera anicteric, conjunctiva are normal. ENT: nares patent. Moist mucous membranes. NECK: Normal range of motion, supple without lymphadenopathy LUNGS: CTAB and equal. No wheezes rales or rhonchi. HEART: Regular rate and rhythm without murmurs ABDOMEN: Soft, nontender, normal bowel sounds, no guarding. EXTREMITIES: Normal range of motion, no pitting edema. No cyanosis. NEUROLOGICAL: Cranial nerves grossly intact. Normal speech. PSYCH: Normal mood, normal affect. SKIN: Warm, Dry, normal turgor, no rashes or lesions noted Patient Education/Counseling Counseling/Education: Patient presents for COVID 19 testing after exposure to daughter's friend who is confirmed positive for COVID 19. Patient remains asymptomatic at this time. Patient does not have emergency worrying symptoms such as difficulty breathing, shortness of breath, chest pain, pressure, confusion or cyanosis. Patient appears suitable for discharge as vital signs are stable and patient is nontoxic in appearance. Good return precautions have been discussed with patient, patient verbalized understanding and is agreeable with discharge plan of care at this time. Guidance for worsening S/SX: As a person under investigation for Covid 19, the [place] department of Health and Human Services, division of public health advises you to adhere to the following guidance until your test results are reported to you. If your test result is positive, you will receive additional information from your provider and your local health department at that time. Remain at home until you are cleared by the health provider or public health authorities. Keep a log of visitors to your home, notify any visitors to your home of your isolation status. If you plan to move to a new address or leave the county, notify the local health department in your County. Call your doctor or seek care if you have an urgent medical need. Before seeking medical care, call ahead to get instructions from the provider before arriving at the medical office clinic or hospital. Notify them that you are being tested for the virus that causes Covid 19 so that arrangements can be made, as necessary, to prevent transmission to others in the healthcare setting. Next, notify the local health department in your county. If a medical emergency arises and you need to call 911, inform the first responders that you are being tested for the virus that causes Covid 19. Next, notify the local health department in your county. RDC Discharge - Discharge Clinical Impression: Encounter for screening laboratory testing for COVID-19 virus in asymptomatic patient Condition: Good Disposition: Home; Selfcare
[2019-08-15 15:12] VITALS: BP 120/61
== END ==
LOC: RDC 14:19
PROVIDERS: ATTEND Registered Nurse
DX: Z20.828 Contact with and (suspected) exposure to other viral communicable diseases (principal); E05.00 Thyrotoxicosis with diffuse goiter without thyrotoxic crisis or storm; F17.200 Nicotine dependence, unspecified, uncomplicated; Z91.030 Bee allergy status
CPT/HCPCS: 87635; C9803

== ENCOUNTER → 2019-09-03 | Outpatient (CLI) | payer SELFPAY ==
[2019-09-03 11:29] VITALS: BP 97/53
--- NOTE | 2019-09-03 11:29 | ER RDC ASSESSMENT REPORT ---
Intake - In the Last 14 days Have you traveled outside [place]?: No Have you been in close contact with someone CONFIRMED: No Worked in Healthcare?: No - Symptoms Subjective Fever([place] feverish): Yes Chills: Yes Muscule Aches: Yes Runny Nose: Yes Sore Throat: Yes Cough (New or worsening chronic cough): Yes Shortness of breath: No Nausea or Vomiting: No Headache: Yes Abdominal Pain: No Diarrhea(3 or more loose stools in last 24 hours): No - Do you have any of the following Chronic lung disease: Asthma or emphysema or COPD: No Cystic Fibrosis: No Diabetes: No High Blood Pressure: No Cardiovascular Disease: Yes Chronic Kidney Disease: No Chronic Liver Disease: No Chronic blood disorder like Sickle Cell Disease: No Weak immune system due to disease or medication: No Neurologic condition that limits movement: No Developmental delay - Moderate to Severe: No Recent (within past 2 weeks) or current : No Morbid Obesity (>100 pounds over ideal weight): No - Objective Temperature: 98.4 F Pulse Rate: 79 Respiratory Rate: 18 Blood Pressure: 97/53 O2 Sat by Pulse Oximetry: 97 Objective: Given above, testing performed: flu, strep, covid Disposition: Home; Selfcare General - General Chief Complaint: Flu Symptoms Time Seen by Provider: 09/03/19 11:15 Mode of Arrival: Ambulatory Information source: Patient - HPI Notes: 38-year-old female presents to [facility] clinic for COVID-19 testing. Patient has medical history significant for von Willebrand's disease and Graves' disease. Patient is reporting onset of symptoms 08/30/2019. She is complaining of fever with T-max 100.4, chills, myalgia, runny nose, sore throat, cough productive of yellow phlegm, and headache. She denies any shortness of breath, nausea, vomiting, abdominal pain or diarrhea. - Related Data Allergies/Adverse Reactions: Bee Stings Allergy (Uncoded 09/30/17 06:18) Past Medical History - General Information source: Patient - Social History Smoking Status: Current Every Day Smoker Cigarette use (# per day): Yes - 10 Smoking Education Provided: Yes Family History: Other - Past Medical History Cardiac Medical History: Denies: Hx Coronary Artery Disease, Hx Heart Attack, Hx Hypertension Other: Von Willebrand's Pulmonary Medical History: Reports: Hx Pneumonia - CHILD Denies: Hx Asthma, Hx Bronchitis, Hx COPD EENT Medical History: Reports: None Neurological Medical History: Reports: None. Denies: Hx Cerebrovascular Accident, Hx Seizures Endocrine Medical History: Reports: Hx Graves' Disease Renal/ Medical History: Reports: None. Denies: Hx Peritoneal Dialysis Malignancy Medical History: Reports: None GI Medical History: Reports: None Musculoskeletal Medical History: Reports None, Denies Hx Arthritis Skin Medical History: Reports None Psychiatric Medical History: Reports: None Traumatic Medical History: Reports: None Infectious Medical History: Reports: None Past Surgical History: Reports: Hx Thyroid Surgery, Hx Tubal Ligation. Denies: Hx Pacemaker Physical Exam - General General appearance: Appears well, Alert In distress: None Notes: PHYSICAL EXAMINATION: GENERAL: Well-appearing and in no acute distress. HEAD: Atraumatic, normocephalic. EYES: sclera anicteric, conjunctiva are normal. ENT: nares patent. Moist mucous membranes. NECK: Normal range of motion, supple without lymphadenopathy. LUNGS: No increased work of breathing. Lung sounds CTAB and equal. No wheezes rales or rhonchi. HEART: Regular rate and rhythm without murmurs. ABDOMEN: Soft, nontender, normal bowel sounds, no guarding. EXTREMITIES: Normal range of motion, no pitting edema. No cyanosis. NEUROLOGICAL: A&O x 3. Normal speech. PSYCH: Normal mood, normal affect. SKIN: Warm, Dry, normal turgor, no rashes or lesions noted Diagnostic Results Laboratory Results: Rapid strep and flu negative, throat culture pending, COVID pending Patient Education/Counseling Counseling/Education: Patient presents with symptoms associated with possible Covid 19 infection. Patient does not have emergency worrying symptoms such as difficulty breathing, shortness of breath, chest pain, pressure, confusion or cyanosis. Patient appears suitable for discharge as vital signs are stable and patient is nontoxic in appearance. Good return precautions have been discussed with patient, patient verbalized understanding and is agreeable with discharge plan of care at this time. Guidance for worsening S/SX: As a person under investigation for Covid 19, the [facility] and Human Services, division of public health advises you to adhere to the following guidance until your test results are reported to you. If your test result is positive, you will receive additional information from your provider and your local health department at that time. Remain at home until you are cleared by the health provider or public health authorities. Keep a log of visitors to your home, notify any visitors to your home of your isolation status. If you plan to move to a new address or leave the county, notify the local health department in your County. Call your doctor or seek care if you have an urgent medical need. Before seeking medical care, call ahead to get instructions from the provider before arriving at the medical office clinic or hospital. Notify them that you are being tested for the virus that causes Covid 19 so that arrangements can be made, as necessary, to prevent transmission to others in the healthcare setting. Next, notify the local health department in your county. If a medical emergency arises and you need to call 911, inform the first responders that you are being tested for the virus that causes Covid 19. Next, notify the local health department in your county. RDC Discharge - Discharge Clinical Impression: Encounter for screening laboratory testing for COVID-19 virus Respiratory infection, upper Qualifiers: URI type: unspecified URI Qualified Code(s): J06.9 - Acute upper respiratory infection, unspecified Condition: Good Disposition: Home; Selfcare
[2019-09-03 12:24] LABS: A TYPE INFLUENZA AG NEGATIVE (NEGATIVE); B INFLUENZA AG NEGATIVE (NEGATIVE)
== END ==
LOC: RDC 10:25
PROVIDERS: ATTEND Registered Nurse
DX: Z20.828 Contact with and (suspected) exposure to other viral communicable diseases (principal); J06.9 Acute upper respiratory infection, unspecified; R50.9 Fever, unspecified; R05 Cough; J02.9 Acute pharyngitis, unspecified; R09.89 Other specified symptoms and signs involving the circulatory and respiratory systems; M79.10 Myalgia, unspecified site; R51 Headache; I25.10 Atherosclerotic heart disease of native coronary artery without angina pectoris; D68.0 Von Willebrand disease; E05.00 Thyrotoxicosis with diffuse goiter without thyrotoxic crisis or storm; F17.210 Nicotine dependence, cigarettes, uncomplicated; Z91.030 Bee allergy status
CPT/HCPCS: 87070; 87880; 87635; 87804; C9803; 99201; 99211